=== PATIENT | female | born 1965 | race Caucasian/White ===

== ENCOUNTER 2024-01-18 12:39 | Outpatient (CLI) | payer OTHER, SELFPAY ==
--- NOTE | ~2024-01-18 | XR_ITS ---
Left Knee Technique: AP, lateral, and sunrise views were obtained. Clinical History: Ankylosing spondylitis Findings: No fracture or dislocation is seen. Osseous alignment is anatomic. Joint spaces are preserv ed without degenerative or erosive change. Soft tissues are unremarkable. No joint effusion is seen. Impression: Unremarkable left knee radiographs. Reviewed, dictated and finalized at location . Impression: Unremarkable left knee radiographs.
--- NOTE | ~2024-01-18 | XR_ITS ---
Right Knee Technique: AP, lateral, and sunrise views were obtained. Clinical History: Ankylosing spondylitis Findings: No fracture or dislocation is seen. Osseous alignment is anatomic. Joint spaces are preserv ed without degenerative or erosive change. Soft tissues are unremarkable. No joint effusion is seen. Impression: Unremarkable right knee radiographs. Reviewed, dictated and finalized at location . Impression: Unremarkable right knee radiographs.
--- NOTE | ~2024-01-18 | XR_ITS ---
AP view of the pelvis and AP and lateral views of the bilateral hips Clinical history: Ankylosing spondylitis Findings: No acute fracture or dislocation is seen. Osseous alignment is anatomic. Bilateral hip and SI joint spaces are preserved. There is degenerative spondylosis of the visualized lower lumbar spine . Calcified uterine fibroids noted. Impression: No significant abnormality of the hips or SI joints. Degenerative spondylosis of the visualized lower lumbar spine. Reviewed, dictated and finalized at location M. Impression: No significant abnormality of the hips or SI joints. Degenerative spondylosis of the visualized lower lumbar spine.
== END 2024-01-18 12:40 ==
LOC: MICIMG 12:42
PROVIDERS: PCP Internal Medicine; Visit Provider Internal Medicine
DX: M45.9 Ankylosing spondylitis of unspecified sites in spine (principal); M46.1 Sacroiliitis, not elsewhere classified; M77.9 Enthesopathy, unspecified; G47.00 Insomnia, unspecified
CPT/HCPCS: 73521; 73562

== ENCOUNTER 2024-07-27 12:56 | Outpatient (CLI) | payer OTHER, SELFPAY ==
[2024-07-27 14:20] LABS: Anion Gap 2 mmol/L (4-12); Blood Urea Nitrogen 20 mg/dL (7-17); Calcium 9.4 mg/dL (8.4-10.2); Carbon Dioxide 32 mmol/L (22-30); Chloride 104 mmol/L (98-107); Estimated Glomerular Filt Rate > 60; Glucose 98 mg/dL (65-110); Potassium 3.7 mmol/L (3.4-5.0); Sodium 138 mmol/L (137-145)
== END 2024-07-27 12:57 | disposition home or self-care (01) ==
LOC: ANHSURGERY 13:02
PROVIDERS: Anesthesiology; PCP Internal Medicine; Visit Provider Obstetrics & Gynecology
DX: Z79.899 Other long term (current) drug therapy (principal)
CPT/HCPCS: 36415; 80048

== ENCOUNTER 2024-08-01 00:31 | Day surgery (SDC) | payer OTHER, SELFPAY ==
[2024-07-26 08:36] VITALS: BMI 38.7
--- NOTE | 2024-07-26 08:50 | PC.NURSE ---
Report to the Outpatient Waiting Room, entrance under the green pavilion located off [facility], at time __10:30am on date __08/01/24 . Planned Procedure Time: _12:30pm .? Time changes happen often and if your time is changed the preop area will call you the afternoon before. - You and your visitor will be asked to self-screen and do not enter if you have any COVID symptoms. Please call surgeon if you need to reschedule. - A mask is optional within the hospital at this time. Patients may have clear liquids (water, carbonated beverages, clear teas, apple juice) until 3 hours prior to surgery with a maximum of 20 ounces. - No food from midnight until time of surgery and no smoking. This includes no chewing gum, candy or mints. (09:30am) Take only the following medications with a SIP of water on the morning of surgery: __Duloxetine, Tramadol if needed DO NOT STOP ANY OF YOUR OTHER PRESCRIPTION MEDICATIONS PRIOR TO SURGERY EXCEPT THE FOLLOWING Medications to discontinue per physician Hold all vitamins and supplements for 3 days prior per Anesthesia Date to take last dose 07/28/24 Please no make-up, nail brit[place] virgin islander, hairspray, perfume, deodorant, or body powder the day of surgery.? No jewelry (including any body piercings) or valuables the day of surgery, leave them at home.? Please take a shower or bath the night before, or the morning of, surgery with an antibacterial soap.? Wear comfortable, loose fitting clothing.? - Jewelry must be removed prior to entering the operating room.? Rings and piercings that are not removed may be cut off. - The hospital will not accept responsibility for valuables.? - Please leave all valuables, including medications, at home the day of surgery. If you are going home after surgery, a licensed taxi driver must drive you home.? - NO public transportation without another adult if you receive anesthesia. - We recommend that an adult stay with you for 24 hours following discharge. - We also recommend that you do not drive, make important decision, drink alcoholic beverages, or take any drugs that were not prescribed by your health care provider for at least 24 hours after your discharge time. Follow any additional instructions given to you from your surgeon. Telephone instructions given to ___Patient and asked if any additional questions and then verbalized understanding. Patient advised to call surgeon office or pre surgery nurse liaison [phone] if any additional questions.
--- NOTE | 2024-08-01 07:10 | WPDHPUPDATE1 ---
History and Physical Update Update Date/Time: 08/01/24 07:10 History and Physical has been reviewed, including an updated exam of the patient. There are NO changes in the patient's condition. Risks, benefits, and alternatives have been discussed and questions answered. Patient agrees to proceed with hysteroscopy with D&C for endometrial sampling.
[2024-08-01 10:30] VITALS: BP 148/98; PULSE 108; RESP 20; TEMP 36.1; O2SAT 98
[2024-08-01] MEDS: ACETAMINOPHEN 500 MG TABLET 1000 MG PO (10:54)
--- NOTE | 2024-08-01 11:01 | P.PNAN_ITS ---
Anes - Eval Pre Procedure Procedure: Operation Date: 08/01/24 12:30 Proposed Procedures p Hysteroscopy Dilation and Curettage - Daksha Porter MD Date/Time: 08/01/24 11:01 Surgeon: Sacha Porter Pre Op Diagnosis: post menopausal bleeding Patient Data Age: 59 Gender: F Height: 1.7 m Weight: 111.2 kg Allergies Allergy/AdvReac Type Severity Reaction Status Date / Time No Known Allergies Allergy Verified 08/01/24 10:35 Home Medications ?Medication ?Instructions ?Recorded ?Confirmed ?Type atorvastatin 10 mg tablet 10 mg PO DAILY 07/18/24 08/01/24 History diclofenac sodium 75 mg 75 mg PO Q12H 07/19/24 08/01/24 History tablet,delayed release duloxetine 60 mg capsule,delayed 60 mg PO DAILY 07/19/24 08/01/24 History release gabapentin 300 mg capsule 300 mg PO HS 07/19/24 07/26/24 History hydrochlorothiazide 12.5 mg tablet 12.5 mg PO DAILY 07/19/24 08/01/24 History lisinopril 20 mg tablet 20 mg PO DAILY 07/19/24 08/01/24 History tramadol 50 mg tablet 50 mg PO Q8H 07/19/24 07/26/24 History Patient hx anesthesia problems: none Family hx anesthesia problems: none Results Review: All pre-operative results and documents have been reviewed as part of the pre- operative evaluation. [facility] Past Medical History Medical History Cerda's palsy 1976 Shingles december 2020 Ankylosing spondylitis Fatty liver Hypertension Headache, migraine Surgical History Surgical History Trigger finger, left middle finger release 12/18/2016 History of cholecystectomy 10/12/2008 Family History Family History Mother Breast cancer Heart problem Hypertension Grandparent Asthma Heart problem Hypertension Father Diabetes mellitus Heart problem Hypertension Sibling Heart problem Hypertension Social History Social History Smoking status: Never smoker Alcohol intake: never Substance use: never Substance use type: does not use Do You Feel Safe in your Home?: Yes Lack of Transportation: No Lack of Food: Never True Current Housing: I Have Housing Concerned About Future Housing: No Difficulty Paying Gas/Electric Bills: No Difficulty Paying for Meds: No Education: High School Diploma/GED Difficulty w/ Childcare or Family Care: No Living arrangements: with family Additional living arrangements comments: Occupation/Education: occupation Spiritual care concerns: No Exam Day of Procedure 08/01/24 11:01 Patient weight: obese (bmi 38.4 )
--- NOTE | 2024-08-01 12:13 | P.PNAN_ITS ---
Anes - Eval Final PreProcedure Day of Procedure 08/01/24 12:13 Patient weight: obese (bmi 38.4) Heart: regular rate and rhythm Lungs: clear to auscultation Airway: Mallampati scale class II Neurological: alert and oriented and other (facial tic/twitch noted during interview) Last oral intake: >/= 8 hours (solids) and 2 hours (liquids) ASA classification: III Emergent: no Anesthetic plan: proceed Anesthesia type and monitoring: general GIVS and standard monitoring Results Review: All pre-operative results and documents have been reviewed as part of the pre- operative evaluation. Informed Consent: The patient's anesthetic plan and its attendant risks and benefits were discussed with the patient/family/POA. Questions were solicited and answers provided to the satisfaction of the patient/family/POA.
[2024-08-01 13:04] VITALS: BP 114/64; PULSE 68; RESP 18; O2SAT 98
[2024-08-01] MEDS: LACTATED RINGERS 1,000 ML 30 ML IV CONT (13:04)
--- NOTE | 2024-08-01 13:04 | W.PM.PROC2 ---
Procedure Note - Detailed Date of Procedure 08/01/24 Pre-op Diagnosis post menopausal bleeding Post-op Diagnosis Other (Endometrial polyps) Procedure Performed Hysteroscopy, D&C, polypectomy Surgeon Daksha Porter MD Anesthesia MAC Findings Normal appearing cervix, small amount of scaring in the endocervix. Multiple polyps: anterior lower left, posterior left cornua very finger like (concerning for malignancy?), right cornual polyp, and one additional one-- all removed using the tissue shaver. Small anterior lower right fibroid, biopsy obtained from it. Tubal ostia visualized. Good hemostasis at end of case. Fluid deficit: 150cc. Description of Procedure Abe was taken to the operating room where she was placed under sedation without complications. She was then prepped and draped in the usual sterile fashion in the dorsal lithotomy position with her legs in low Malcolm stirrups. A time-out was performed and no perioperative antibiotics were indicated. A bivalve speculum was placed within the vagina where the cervix was easily identified. The anterior lip of the cervix was grasped with a single-tooth tenaculum. The cervix was then serially dilated to allow for the hysteroscope. The hysteroscope was advanced into the uterine cavity with the above findings noted. Using the Aveta Small Tissue shaver, the endometrial polyps were all removed. The fibroid was attempted to be removed but was calcified and unable to be removed, sample was obtained. A curettage was then performed until a good uterine cry was felt throughout the uterus. The hysteroscope was once again advanced back into the uterus and it was noted that all polyps had been removed and all areas of the uterus were sampled. Good hemostasis was noted. All instruments were removed from the vagina. Sponge, lap, instrument, and needle counts were correct at the end of the procedure. Patient was awoken from anesthesia and taken to recovery with plans of same-day discharge home. Estimated Blood Loss 10 IV Fluids 800 Pathology Yes (endometrial polyps and endometrial curettings) Complications No immediate complications Condition Stable Disposition Same day [facility] Billing Surgery - Charge Forward: Surgery Billing
[2024-08-01] MEDS: fentaNYL CITRATE INJ (*CRX) 250 MCG/5 ML VIAL 25 MCG IV PUSH ×2 (13:24→13:26)
[2024-08-01 13:30] VITALS: BP 103/59; PULSE 61; RESP 18; O2SAT 95
[2024-08-01 14:00] VITALS: BP 131/70; PULSE 73; RESP 16
[2024-08-01] MEDS: oxyCODONE HCL (*CRX) 5 MG TAB IR PO (14:02)
[2024-08-01 14:21] VITALS: BP 123/69; PULSE 71; RESP 16
== END 2024-08-01 14:25 | disposition home or self-care (01) ==
PROVIDERS: PCP Internal Medicine; Visit Provider Obstetrics & Gynecology
PROC: 0U5B8ZZ Destruction of Endometrium, Via Natural or Artificial Opening Endoscopic (ICD-10-PCS; CPT 58563; principal; 2024-08-01 12:30)
DX: C54.1 Malignant neoplasm of endometrium (principal); E66.9 Obesity, unspecified; Z68.38 Body mass index [BMI] 38.0-38.9, adult; I10 Essential (primary) hypertension
CPT/HCPCS: 58558; 88305; 88342; A9270; J1885; J2003; J2250; J2704; J3010; J7120

== ENCOUNTER 2025-04-29 09:30 | Outpatient (CLI) | payer OTHER, SELFPAY ==
--- OUTSIDE RECORDS SUMMARY | 2019-07-04 06:45 | XMS_ITS | Continuity of Care Document ---
Author Organization [facility] Address [address] [facility] [address] [place] [address] Phone Care Team Providers Care Foxpro Developer Name Role Phone Caron BALLARD MD, Acacia Unavailable Unavailable Allergies, Adverse Reactions, Alerts Substance Reaction Status Criticality No Known Allergies Active No Inform ation Medications Medication Instructions Dosage Effective Dates (start - stop) Status Comments duloxetine 60 mg capsule,delayed release take 1 capsule by oral route every day 60 MG - Active nabumetone 750 mg tablet take 1 tablet by oral route 2 times every day 750 MG - Active atorvastatin 10 mg tablet take 1 tablet by oral route every day 10 MG - Active Tylenol PRN BUCCAL ADH. PATCH - Active lisinopril 10 mg-hydrochlorothiazi de 12.5 mg tablet take 1 tablet by oral route every day 1.00 tablet - Active Procedures Procedure Date OFFICE/OUTPATIENT VISIT, [facility] GDX Retina EYE EXAM WITH PHOTOS Advance Directives Directive Yes / No Effective Date File Name No Information Encounters Encounter Description Practice Location Reason(s) For Visit Diagnoses Date Provider Providers Copied on Encounter OFFICE/OUTPAT IENT VISIT, [facility], [address] [facility] [address], [place], [place], [id number], [place] tel:[phone] [phone] CONSULT ANA PADRON Retinal Vasculitis (chief complaint) 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 [address] [facility], [address], [place], [place], [id number], [place]. tel:[phone] Referring Provider: [place], [address] [facility] [address], [place], [address]. tel:[phone] Family History Family Member Type Diagnosis Age At Onset Father Problem (finding) cataract Mother Problem (finding) cataract Payers Payer name Insurance type Covered democrat ID Sean maldonado(s) [facility] [id number] Social History Type Description Quantity Date Captured Comments Alcohol Use Details Caffeine Use Details Unknown Tobacco Use Status Current non-smoker 19 Smoking Status Never smoker Non-Smoking Tobacco Use Details : No Details Available : No Details Available Sex Female Chief Complaint And Reason For Visit From encounter dated '07/04/2019 11:45'. Retinal Vasculitis (chief complaint). Description: The 54 year old female presents for evaluation of Retinal Vasculitis in the right eye. It started about 1 month(s) ago. It affects [facility] not affected. The condition is stable.Mac OCT was ordered Ref by Dr. Morena KU Reason For Referral Reason For Referral No Information History Of Present Illness Encounter Date Complaint History Of Prese nt Illness Retinal Vasculitis The 54 year o ld female presents for evaluation of Retinal Vasculitis in the right eye. It started about 1 month(s) ago. It affects [facility] not affected. The condition is stable.Mac OCT was ordered Ref by Dr. 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
--- NOTE | ~2025-04-29 | XR_ITS ---
XR foot LT 2V 04/29/2025 10:23 Indication: Ankylosing spondylitis Procedure: 2 views left foot Comparison: No prior studies for comparison. Findings: There is anatomic alignment. Lisfranc joint intact. Small degenerative calcaneal enthesophyte. No fracture, subluxation or dislocation. No erosive changes. No foreign bodies. Impression: 1: No significant bone or joint abnormality. Reviewed, dictated and finalized at location O. Impression: 1: No significant bone or joint abnormality.
--- NOTE | ~2025-04-29 | XR_ITS ---
X-rays right hand X-rays left hand Indication: Ankylosing spondylitis Comparison: None Technique: 2 views right hand, 2 views left hand Findings/Impression: Right hand: 1. No fracture or dislocation. 2. Mild degenerative changes third and fourth fingers PIP joints. 3. No erosions or periosteal changes. Left hand: 1. No fracture or dislocation. 2. No significant degenerative changes. 3. No erosions or periosteal changes. Reviewed, dictated and finalized at location R.
--- NOTE | ~2025-04-29 | XR_ITS ---
XR cervical spine 4-5V 04/29/2025 10:23 Indication: Ankylosis spondylitis Procedure: 5 views cervical spine Comparison: No prior studies for comparison. Findings: There is disc narrowing at C4-5, C5-6 and C6-7. Vertebral body heights are maintained. No fracture, subluxation or dislocation. Odontoid process is normal. Lung apices are normal. Impression: 1: Moderate cervical spondylosis. Reviewed, dictated and finalized at location O. Impression: 1: Moderate cervical spondylosis.
--- NOTE | ~2025-04-29 | XR_ITS ---
X-rays right foot Indication: Ankylosing spondylitis Comparison: Left foot same day Technique: 2 views right foot Findings/Impression: 1. No fracture or dislocation. 2. No significant degenerative changes. 3. No erosions or periosteal changes. Reviewed, dictated and finalized at location R.
--- NOTE | ~2025-04-29 | XR_ITS ---
XR lumbar spine min 4V 04/29/2025 10:23 Indication: Ankylosing spondylitis Procedure: 5 views lumbar spine Comparison: No prior studies for comparison. Findings: There is dextrocurvature of the lumbar spine. There are cholecystectomy clips. There is disc narrowing at L1-2, L3-4, L4-5 and L5-S1. There is facet hypertrophy at L3-4 through L5-S1. No evidence for spondylolisthesis. No acute fracture. Sacral foramen are symmetric. Impression: 1: Moderate lumbar spondylosis with dextrocurvature Reviewed, dictated and finalized at location O. Impression: 1: Moderate lumbar spondylosis with dextrocurvature
--- NOTE | ~2025-04-29 | XR_ITS ---
XR sacroiliac joints min 3V 04/29/2025 10:23 Indication: Ankylosing spondylitis Procedure: 3 views of the sacroiliac joints Comparison: 01/18/2024 Findings: The sacroiliac joints are symmetric without significant degenerative change, ankylosis or erosive change. Sacral foramen are symmetric. Pelvic rings are intact. There is lower lumbar spondylosis. Impression: 1: No significant abnormality of the sacroiliac joints. Reviewed, dictated and finalized at location O. Impression: 1: No significant abnormality of the sacroiliac joints.
--- OUTSIDE RECORDS SUMMARY | 2025-04-29 09:37 | XMS_ITS | Encounter Summary ---
Author Organization [facility] Facility Care Team Providers Care Senior Business Consultant Name Role Phone Moi Pathak MD Primary Care Provider [phone] Daksha Porter MD Unavailable [phone] Encounter Details Date Type Department Care Team (Latest Contact Info) Description 12/18/2017 Orders Only [facility] ProviderJoo MD [address] [place] [id number] Social History Tobacco Use Types Packs/Day Years Used Date Smoking Tobacco: Never Assessed Comments Unknown Sex and Gender Information Value Date Recorded Sex Assigned at Not on file Legal Sex Female 8:16 PM 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 us Historical Provider Final Res ult documented in this encounter Visit Diagnoses Not on filedocumented in this encounter Additional Health Concerns Infection Onset Date Last Indicated Resolved Time Exposure, COVID-19 Comment:Added automatically based on COVID19 lab answers indicating exposure risk 02/26/2022 02/26/2022 03/08/2022 3:05 AM C DT COVID: Suspected 02/26/2022 02/26/2022 02/26/2022 9:31 PM CDT COVID: Suspected 09/04/2022 09/04/2022 09/04/2022 3:33 PM DRY PAN FEEDER documented as of this encounter Care Teams Senior Business Consultant Relationship Specialty Start Date End Date Moi Pathak MD PCP - General Internal Medicine 02/26/22 Daksha Porter MD [address] [place] [address] Obstetrics and Gynecology 09/28/24 documented as of this encounter
--- OUTSIDE RECORDS SUMMARY | 2025-04-29 09:37 | XMS_ITS | Clinical Summary ---
Author Organization [facility] Address [address] [place] [address] Care Team Providers Care Manufacturing Support Engineer Name Role Phone Moi Pathak MD Primary Care Provider [phone] Daksha Porter MD Unavailable [phone] Allergies No known active allergies Medications hydroCHLOROthiaz matteo (HYDRODIURIL) 12.5 mg tabletIndication s:Edema,hyperten laurel Take 1 tablet (12.5 mg total) by mouth it trainee before breakfast Active lisinopriL (PRINIVIL,ZESTRI L) 20 mg tabletIndication s:hypertension Take 1 tablet (20 mg total) by mouth it trainee before breakfast Active gabapentin (NEURONTIN) 300 mg capsuleIndicatio ns:Neuropathic Pain Take 1 capsule (300 mg total) by mouth nightly Active DULoxetine DR (CYMBALTA) 60 mg capsuleIndicatio ns:anklosing spondylitis Take 1 capsule (60 mg total) by mouth it trainee before breakfast Active atorvastatin (LIPITOR) 10 mg tabletIndication s:hyperlipidemia Take 1 tablet (10 mg total) by mouth every evening Active UNABLE TO FINDIndications: weight loss supplement Take 2 each by mouth every evening Med Name: Lipozem Active acetaminophen (TYLENOL) 500 mg tablet Take 2 tablets (1,000 mg total) by mouth every 6 (six) hours as needed for pain for up to 30 doses 60 tablet 5 Active polyethylene glycol (MIRALAX) 17 gram/dose bulk powder Take 17 g by mouth daily As needed to have one bowel movement daily. 510 [address] (VOLTAREN) 75 mg EC tablet Take 1 tablet (75 mg total) by mouth 5 Active baclofen (LIORESAL) 10 mg tablet TAKE 1 TABLET BY MOUTH THREE TIMES DAILY NEEDED FOR BACK PAIN OR SPASMS 5 Active cholestyramine (Prevalite) 4 gram powder in packet DISSOLVE 1 PACKET IN LIQUID AND DRINK EVERY DAY Active hydroxychloroqui ne (PLAQUENIL) 200 mg tablet 5 Active Active Problems Problem Noted Date Diagnosed Date Endometrial cancer 08/31/2024 Osteoarthritis of right knee 02/23/2024 Viral syndrome 08/23/2023 Hyperglycemia 10/29/2022 Elevated liver enzymes 09/04/2022 Muscle pain 09/04/2022 Essential hypertension 01/03/2022 Dyslipidemia 12/22/2018 Steatosis of liver 11/08/2016 Gastroesophageal reflux disease without esophagi tis 06/08/2016 Encounters Date Type Department Care Team Description 02/23/2025 Telephone [facility] Medicine Obstetrics and Gynecology [address] [facility] [address] [place] [address] Corina Hoover RN 02/23/2025 Telephone [facility] Obstetrics and Gynecology [address] [facility] [address]th [place] [address] Umm Ashford RN 02/20/2025 4:00 PM CDT Office Visit [facility] Medicine Obstetrics and Gynecology [address] [facility] [address]th [place] [address] Danielle Bolaños NP Encounter for routine cancer follow-up (Primary Dx); Endometrial cancer (HCC); Healthcare maintenance from Last 3 Months Immunizations Immunization Administration Dates Next Due Influenza, Trivalent, IM (MDV) 06/08/2024 Pneumococcal Conjugate Pcv20 03/09/2024 Surgical History Surgery Date Site/Laterality Comments CHOLECYSTECTOMY 10/12/2008 TRIGGER FINGER RELEASE Left WISDOM TOOTH EXTRACTION HYSTERECTOMY RA TLH BSO sLND Medical History Medical History Date Comments Hypertension Hypercholesteremia Chronic headaches Fatty liver PONV (postoperative nausea and vomiting) after gallbladder, 2x, did have to stay overnight instead of outpt Motion sickness Family History Medical History Relation Name Comments Breast cancer Mother Anesthesia problems Neg Hx Relation Name Status Comments Mother Social History Tobacco Use Types Packs/Day Years Used Date Smoking Tobacco: Never Smokeless Tobacco: Never Tobacco Cessation:Counseling Given: Not Answered AUDIT-C Answer Date Recorded Q1: How often do you have a drink containing alcohol? Never 09/29/2024 Q2: How many drinks containi ng alcohol do you have on a typical day when you are drinking? Patient does not drink Q3: How often do you have si x or more drinks on one occasion? Never 09/29/2024 Personal Safety Answer Date Recorded Have you ever been in or are you currently in a harmful physical or emotional relationship or is someone making you feel afraid or unsafe? 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 Gender Identity Not on file Sexual Orientation Not on file Obstetrics History Para Term AB IAB SAB Ectopic Multiple Livin g Live Births 2 2 2 Date Outcome GA Total Labor Labor/2nd/3rd Weight Sex Type Anes PTL Carie A1 A5 Name Clin Term Term Last Filed Vital Signs Vital Sign Reading Time Taken Comments Blood Pressure 121/80 02/20/2025 4:00 PM CDT Pulse 105 02/20/2025 4:00 PM CDT Temperature 37 C (98.6 F) 02/20/2025 4:00 PM CDT Respiratory Rate 16 02/20/2025 4:00 PM CDT Oxygen Saturation 96% 02/20/2025 4:00 PM CDT Inhaled Oxygen Concentration - - Weight 109.9 kg (242 lb 3.2 oz) 02/20/2025 4:00 PM CDT Height 170.2 cm (5' 7.01) 02/20/2025 4:00 PM CD T Body Mass Index 37.92 02/20/2025 4:00 PM CDT Plan of Treatment Health Maintenance Due Date Last Done Comments Colon Cancer Screening-Colonoscopy 1965 Depression Screening 1965 Hepatitis C Screening 1965 DTaP/Tdap/Td Vaccine (1 - Tdap) 1974 Hepatitis B Screening 1981 Regular Well Visit/Exam 18-64 1981 Zoster Vaccine (1 of 2) 1982 Breast Cancer Screening-Mammogram 05/24/2014 013 Covid-19 Vaccine ( season) 04/10/202512/2021, 11/17/2020 Influenza Vaccine (#1) 2025 06/08/2024 Pneumococcal vaccine <65 Completed 03/09/2024 Cervical Cancer Screening Discontinued 08/31/2024, Procedures Procedure Name Priority Date/Time Associated Diagnosis Comments HIGH RISK HPV DNA DETECTION WITH GENOTYPING Routine 08/31/2024 2:25 PM BUSINESS BANKING RELATIONSHIP MANAGER SCREENING MAMMOGRAM Routine 05/24/2013 1 1:25 AM CDT from Last 3 Months or Most Recently Relevant to Health Maintenance Results * High Risk HPV DNA Detection with Genotyping (Molecular component) (08/31/2024 2:25 PM BUSINESS BANKING RELATIONSHIP MANAGER) Pathologist [facility] HPV HR 16 Not Detected Not Detected [facility] HPV HR 18 Not Detected Not Detected [facility] HPV HR Non 16/18 Not Detected Not Detected [facility] Comment: Interpretive Data Nucleic acid amplification for detection of high-risk Human Papilloma virus (HPV) is performed by the Karol Ximena 6800 HPV test. This assay specifically detects HPV-16 and HPV-18 genotypes. The following HPV genotypes are detected as high-risk HPV: HPV-31, 33, 35, ,39, 45, 51, 52, 56, 58, 59, 66, and 68. This assay has been approved by the [place] Food and Drug Administration for detection of HPV in cervical specimens collected by a physician using an endocervical brush/spatula or cervical broom and placed in the ThinPrep Pap Test PreservCyt collection containers. The performance characteristics of this test have been verified by the [facility] Molecular Infectious Disease laboratory. Correlate with separately reported cytology results, as applicable. Interpretive data last revised 23 Endocervical 08/31/2024 2:25 PM BUSINESS BANKING RELATIONSHIP MANAGER 09/05/2024 2:45 PM BUSINESS BANKING RELATIONSHIP MANAGER us Ritu Galicia MD LAB BODY FLUIDS AND STOOLS ORDERABLES Final Result [facility] Department [place] [address] [facility] * Screening Mammogram (05/24/2013 11:25 AM CDT) Anatomical Region Laterality Modality Breast N/A Mammography 05/24/2013 11:2 5 AM CDT Narrative 05/24/2013 12:59 PM CDT MARY MEJIA M.D. FINAL REPORT ACC# Date Time Exam [id number] May 24, 2013 11:25:00 [facility] [id number] Screening Mamm Bilat Technologist(s): Elana Gonzales; ; EXAMINATION: Mammogram Technique: Bilateral Full-Field Digital Screening Mammogram was performed. Views obtained: bilateral craniocaudal and bilateral mediolateral oblique. Computer Aided Detection was performed with [employer].3 version 9.3. Mammogram Findings: The present examination has been compared to prior imaging studies performed at [facility] on 02/17/2012, 01/17/2011 and 02/02/2009. There are scattered fibroglandular densities. There is no suspicious abnormality in either breast. IMPRESSION: Annual screening mammography is recommended. OVERALL FINAL ASSESSMENT: BI-RADS CATEGORY 1: Negative. Requested By: Brent Roberts M.D. Dictated By: MARY MEJIA M.D. on May 24 2013 12:59P This document has been electronically signed by: MARY MEJIA M.D. on May 24 2013 12:59P Procedure Note Provider, MD Joo - 11/30/2016 MARY MEJIA M.D. FINAL REPORT ACC# Date Time Exam [id number] May 24, 2013 11:25:00 [facility] [id number] Screening Mamm Bilat Technologist(s): Elana Gonzales; ; EXAMINATION: Mammogram Technique: Bilateral Full-Field Digital Screening Mammogram was performed. Views obtained: bilateral craniocaudal and bilateral mediolateral oblique. Computer Aided Detection was performed with [employer].3 version 9.3. Mammogram Findings: The present examination has been compared to prior imaging studies performed at [facility] on 02/17/2012, 01/17/2011 and 02/02/2009. There are scattered fibroglandular densities. There is no suspicious abnormality in either breast. IMPRESSION: Annual screening mammography is recommended. OVERALL FINAL ASSESSMENT: BI-RADS CATEGORY 1: Negative. Requested By: Brent Roberts M.D. Dictated By: MARY MEJIA M.D. on May 24 2013 12:59P This document has been electronically signed by: MARY MEJIA M.D. on May 24 2013 12:59P Historical Provider MD [facility] Crystal l Result from Last 3 Months or Most Recently Relevant to Health Maintenance Insurance * Guarantor: Morena Rincon Account Type Relation to Patient Date of Phone Billing Address Personal/Family Self [address] [place], [place] [id number] [facility] PLUS [facility] PL[facility] Care Teams Manufacturing Support Engineer Relationship Specialty Start Date End Date Moi Pathak MD PCP - General Internal Medicine 02/26/22 Daksha Porter MD [address] [place] [address] Obstetrics and Gynecology 09/28/24
--- OUTSIDE RECORDS SUMMARY | 2025-04-29 09:38 | XMS_ITS | Encounter Summary ---
Author Organization [facility] Address [address] [place] [address] Care Team Providers Care High Speed Warper Tender Name Role Phone Unavailable Primary Care Provider Unavailabl e Encounter Details Date Type Department Care Team (Latest Contact Info) Description 10/24/1999 Outpatient Historical [facility],NON-PATIENT Brent Roberts MD NO ADDRESS ON FILE Panda Barton MD [address] [facility] [address] [place] [id number] Abnormal Papanicolaou smear of cervix and cervical HPV (Primary Dx) Social History Tobacco Use Types Packs/Day Years Used Date Smoking Tobacco: Never Assessed Comments Unknown Sex and Gender Information Value Date Recorded Sex Assigned at Not on file 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
--- OUTSIDE RECORDS SUMMARY | 2025-04-29 09:38 | XMS_ITS ---
Author Organization [facility] Address [address] [place] [address] Care Team Providers Care Shredding Specialist Name Role Phone Moi Pathak MD Primary Care Provider [phone] Daksha Porter MD Unavailable [phone] Active Problems Problem Noted Date Diagnosed Date Endometrial cancer 08/31/2024 Osteoarthritis of right knee 02/23/2024 Viral syndrome 08/23/2023 Hyperglycemia 10/29/2022 Elevated liver enzymes 09/04/2022 Muscle pain 09/04/2022 Essential hypertension 01/03/2022 Dyslipidemia 12/22/2018 Steatosis of liver 11/08/2016 Gastroesophageal reflux disease without esophagi tis 06/08/2016 Current Treatment and Therapy Plans No current plan information found. Past Treatment and Therapy Plans No past plan information found. Lifetime Dose Tracking * Chemical Lifetime Dose Automatic Entry Manual Entr y DLP 1,203 mGycm 1,203 mGycm 0 mGycm
--- OUTSIDE RECORDS SUMMARY | 2025-04-29 09:38 | XMS_ITS | Clinical Summary ---
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
== END 2025-04-29 09:31 | disposition home or self-care (01) ==
PROVIDERS: PCP Internal Medicine; Visit Provider Internal Medicine
DX: M45.9 Ankylosing spondylitis of unspecified sites in spine (principal); M47.816 Spondylosis without myelopathy or radiculopathy, lumbar region; M19.041 Primary osteoarthritis, right hand; M19.042 Primary osteoarthritis, left hand; M47.812 Spondylosis without myelopathy or radiculopathy, cervical region
CPT/HCPCS: 72050; 72110; 72202; 73120; 73620

== ENCOUNTER 2025-06-01 10:58 | Outpatient (CLI) | payer OTHER, SELFPAY ==
--- NOTE | ~2025-06-01 | MR_ITS ---
EXAMINATION: MR pelvis wo con DATE: 06/01/2025 11:41 INDICATION: Ankylosing spondylitis TECHNIQUE: Magnetic resonance imaging (MRI) of the central posterior pelvis including the sacrum, coccyx and bilateral sacroiliac joints was performed without intravenous contrast. Sequences included sagittal PD-weighted FS FSE, coronal oblique T2-weighted FS FSE, coronal oblique T1-weighted FSE, oblique axial T2-weighted FS FSE and oblique axial T1-weighted FSE. COMPARISON: Radiographs dated 04/29/2025 FINDINGS: No fracture or pathologic marrow replacing process. Moderate to severe right- sided predominant disc height loss with associated fibrovascular degenerative endplate changes at L4-L5. Mild disc height loss at L5-S1. There are annular fissures and disc bulges contributing to mild central canal stenosis at both these levels. Moderate facet osteoarthritis at L4-L5 and L5-S1. Moderate bilateral neural from stenosis at both levels. Mild osteoarthritis with small regions of subarticular edema-like signal change at both sacroiliac joints. No evident erosions or abnormal increased fluid signal along the joint margins to suggest an inflammatory sacroiliitis. IMPRESSION: 1. Moderate to severe lower lumbar spondylosis. 2. Mild bilateral sacroiliac osteoarthritis. Reviewed, dictated and finalized at location A.
== END 2025-06-01 10:59 | disposition home or self-care (01) ==
PROVIDERS: PCP Internal Medicine; Visit Provider Internal Medicine
DX: M43.06 Spondylolysis, lumbar region (principal); M46.1 Sacroiliitis, not elsewhere classified
CPT/HCPCS: 72195